=== PATIENT | female | born 1970 ===

== ENCOUNTER 2021-09-23 15:37 | Emergency (ER) | payer SELFPAY ==
[2021-09-23 15:43] VITALS: BP 150/82
[2021-09-23] MEDS ORDERED: IBUPROFEN 800 MG TAB PO ONE (16:03)
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
== END 2021-09-23 19:00 | disposition home or self-care (01) ==
LOC: ED 15:37
DX: S62.393A Other fracture of third metacarpal bone, left hand, initial encounter for closed fracture (principal); S62.395A Other fracture of fourth metacarpal bone, left hand, initial encounter for closed fracture; X58.XXXA Exposure to other specified factors, initial encounter; Y93.89 Activity, other specified; Y92.89 Other specified places as the place of occurrence of the external cause; Y99.0 Civilian activity done for income or pay
CPT/HCPCS: 99283